=== PATIENT | female | born 1975 | race African-American/Black ===

== ENCOUNTER 2017-01-08 12:57 | Inpatient (IN) | payer OTHER ==
[2017-01-08 14:45] VITALS: BMI 37.9
[2017-01-08] MEDS ORDERED: diphenhydrAMINE HCL 50 MG CAPSULE PO PRN (14:59)
[2017-01-08] MEDS ORDERED: MAGNESIUM CITRATE 300 ML BOTTLE PO PRN (14:59)
[2017-01-08] MEDS ORDERED: guaiFENesin/D-METHORPHAN HB 10 ML UNIT-DOSE CUPS PO PRN (14:59)
[2017-01-08] MEDS ORDERED: P-EPHED 60MG/TRIPROLIDI 2.5MG TABLET PO PRN (14:59)
[2017-01-08] MEDS ORDERED: NICOTINE POLACRILEX 4 MG GUM BC PRN (14:59)
[2017-01-08] MEDS ORDERED: LOPERAMIDE HCL 2 MG CAPSULE PO PRN (14:59)
[2017-01-08] MEDS ORDERED: MAG HYDROX/AL HYDROX/SIMETH 30 ML UNIT-DOSE CUP PO PRN (14:59)
[2017-01-08] MEDS ORDERED: MENTHOL/PHENOL 1 EACH UD MM PRN (14:59)
[2017-01-08] MEDS ORDERED: IBUPROFEN 400 MG TABLET (FP) PO PRN (14:59)
[2017-01-08] MEDS ORDERED: hydrOXYzine PAMOATE 50 MG CAPSULE (FP) PO PRN (14:59)
[2017-01-08] MEDS ORDERED: MAGNESIUM HYDROX 2400MG/30ML ORAL SUSPENSION 30 ML CUP PO PRN (14:59)
[2017-01-08] MEDS ORDERED: ACETAMINOPHEN 325 MG TABLET (FP) PO PRN (14:59)
--- NOTE | 2017-01-08 15:04 | HP ---
Admission [facility] Chief Complaint: requesting inpatient rehab for cocaine use Allergies/Adverse Reactions: Allergies Allergy/AdvReac Type Severity Reaction Status Date / Time No Known Allergies Allergy Verified 01/08/17 14:57 History of Present Illness: 41 yo f with h/o chronic crack cocaine dependence, nicotine dependence, h/o asthma, HTN, bp normal but now not taking medications, psychiatric illness, no suicidal ideation at present, suicide attempt in past admitted for inpatient rehab. no h/o seizures, DTs, no other illicit drug use reported no alcohol use. Exam Limitations: No Limitations - Ebola screening Have you traveled outside of the country in the last 21 days: No Have you had contact with anyone from an Ebola affected area: No Have you been sick,other than usual withdrawal symptoms: No Do you have a fever: No - Review of Systems Constitutional: No Symptoms Reported EENT: reports: No Symptoms Reported Respiratory: reports: Cough (at night from asthma, relieved by pump), Shortness of Breath, Wheezing (from astma, relieved by inhaler at night) Cardiac: reports: No Symptoms Reported Musculoskeletal: reports: No Symptoms Reported, Muscle Pain (occasionally in legs, no swelling no h/o trauma) Integumentary: reports: No Symptoms Reported Neuro: reports: No Symptoms reported Endocrine: reports: No Symptoms Reported Hematology: reports: No Symptoms Reported Psychiatric: reports: No Sypmtoms Reported, Depressed Other Systems: Reviewed and Negative Patient History - Patient Medical History Hx Anemia: Yes (heavy periods on iron pills) Hx Asthma: Yes (uses) Hx Chronic Obstructive Pulmonary Disease (COPD): No Hx Cancer: No Hx Cardiac Disorders: No Hx Congestive Heart Failure: No Hx Hypertension: Yes (not takin gmedication as prescribed bp stable has lost 20lbs) Hx Hypercholesterolemia: No Hx Pacemaker: No HX Cerebrovascular Accident: No Hx Seizures: No Hx Dementia: No Hx Diabetes: No Hx Gastrointestinal Disorders: No Hx Liver Disease: No Hx Genitourinary Disorders: No Hx Sexually Transmitted Disorders: No Hx Renal Disease (ESRD): No Hx Thyroid Disease: No Hx Human Immunodeficiency Virus (HIV): No Hx Hepatitis C: No Hx Depression: Yes Hx Suicide Attempt: Yes (no suicidal ideation age 28) Hx Bipolar Disorder: Yes Hx Schizophrenia: Yes - Patient Surgical History Past Surgical History: Yes Other Surgical History: cervical dysplasia Anesthesia Reaction: No - PPD History Previous Implant?: Yes Documented Results: Negative w/o proof Implanted On Prior R Admission?: Yes PPD to be Administered?: Yes - Reproductive History Patient is a Female of Child Bearing Age (11 -55 yrs old): No Patient : No - Smoking Cessation Smoking history: Current every day smoker Have you smoked in the past 12 months: Yes Aproximately how many cigarettes per day: 20 Hx Chewing Tobacco Use: No Initiated information on smoking cessation: Yes 'Breaking Loose' booklet given: 01/08/17 - Substance & Tx. History Hx Alcohol Use: No Hx Substance Use: Yes Substance Use Type: Cocaine Hx Substance Use Treatment: Yes ([facility] in past) - Substances Abused Crack Route: Smoking Frequency: Daily Amount used: $50-100 Age of first use: 30 Date of Last Use: 01/07/17 Family Disease History - Family Disease History Family Disease History: Heart Disease: Father, Mother Other Family History: aunts ca Admission Physical Exam BHS - Vital Signs Vital Signs: Vital Signs - 24 hr 01/08/17 14:42 Temperature 97.4 F L Pulse Rate 90 Respiratory 20 Rate Blood Pressure 122/85 - Physical General Appearance: Yes: No Apparent Distress, Nourished, Appropriately Dressed , Obese HEENTM: Yes: Within Normal Limits, EOMI, Hearing grossly Normal, Normal ENT Inspection, Normocephalic, Normal Voice, HANSA, Pharynx Normal Respiratory: Yes: Within Normal Limits, Chest Non-Tender, Lungs Clear, Normal Breath Sounds, No Respiratory Distress, No Accessory Muscle Use Neck: Yes: Within Normal Limits, No masses,lesions,Nodules, Supple, Trachea in good position Breast: Yes: Breast Exam Deferred Cardiology: Yes: Within Normal Limits, Regular Rhythm, Regular Rate, S1, S2 Abdominal: Yes: Within Normal Limits, Normal Bowel Sounds, Non Tender, Soft, Protuberent, Distended Genitourinary: Yes: Within Normal Limits Back: Yes: Within Normal Limits, Normal Inspection Musculoskeletal: Yes: Within Normal Limits, full range of Motion, Gait Steady, Pelvis Stable Extremities: Yes: Within Normal Limits, Normal Capillary Refill, Normal Inspection, Normal Range of Motion, Non-Tender, Tremors (felt not visible) Neurological: Yes: Within Normal Limits, corpsman II-XII NML intact, Fully Oriented, Alert, Motor Strength 5/5, Normal Response, Depressed Affect Integumentary: Yes: Within Normal Limits, Normal Color, Dry, Warm Lymphatic: Yes: Within Normal Limits - Addiitonal Findings: no signs of withdrawal sx, obses with slight tremor noted. - Diagnostic (1) Cocaine dependence, uncomplicated Current Visit: Yes Status: Acute (2) Obesity Current Visit: Yes Status: Acute (3) Schizoaffective disorder Current Visit: Yes Status: Acute (4) Asthma Current Visit: Yes Status: Acute Cleared for Admission [facility] - Detox or Rehab Claeared for Rehab Admission: Yes [facility] Breath Alcohol Content Breath Alcohol Content: 0 Urine Pregancy Test - Result Urine Test Results: Negative- NO Line Present Urine Drug Screen - Results Drug Screen Negative: No Urine Drug Screen Results: JESSIE-Cocaine
[2017-01-08 17:04] LABS: MCH 22.4 pg (25.7-33.7); MCHC 32.7 g/dl (32.0-36.0); MEAN CELL VOLUME 68.6 fl (80-96); PLATELET COUNT 365 K/MM3 (134-434); RDW 18.3 % (11.6-15.6); WHITE BLOOD COUNT 8.4 K/mm3 (4.0-10.0)
[2017-01-08 17:23] LABS: ALBUMIN 3.4 g/dl (3.4-5.0); ALK PHOS 84 U/L (45-117); ANION GAP 8 (8-16); BILIRUBIN,TOTAL 0.3 mg/dL (0.2-1.0); CALCIUM 8.8 mg/dL (8.5-10.1); CO2 27 mmol/L (21-32); GLUCOSE,RANDOM 131 mg/dL (74-106); SGOT/AST 15 U/L (15-37); SGPT/ALT 24 U/L (12-78); TOT PROT 7.1 g/dl (6.4-8.2)
[2017-01-08] MEDS ORDERED: TUBERCULIN PPD 5 TU/0.1ML VIAL ID ONE (18:10)
[2017-01-08] MEDS: THIAMINE HCL 100 MG TABLET (FP) PO SCH (21:25)
[2017-01-08] MEDS: traZODone HCL 100 MG TABLET (FP) PO SCH (21:25)
[2017-01-08] MEDS: DIVALPROEX SODIUM 500 MG TABLET E.C. PO SCH (21:25)
[2017-01-08] MEDS: NICOTINE 21 MG/24 HOURS TOPICAL PATCH TD SCH (21:26)
[2017-01-09 01:31] LABS: URINE APPEARANCE SLCLOUDY; URINE BILIRUBIN NEGATIVE (NEGATIVE); URINE BLOOD 3+ (NEGATIVE); URINE COLOR AMBER; URINE GLUCOSE (UA) NEGATIVE (NEGATIVE); URINE KETONE NEGATIVE (NEGATIVE); URINE LEUK ESTERASE TRACE (NEGATIVE); URINE NITRITE NEGATIVE (NEGATIVE); URINE PROTEIN 1+ (NEGATIVE)
[2017-01-09 01:36] LABS: URINE MUCUS MANY; URINE RBC 32 /hpf (0-3); URINE WBC 16 /hpf (3-5)
[2017-01-09] MEDS ORDERED: PT OWN MED DRAWER 7, Y5N ONE (06:44)
[2017-01-09] MEDS: ALBUTEROL SO4 6.7 GM HFA INHALER IH PRN (06:44)
[2017-01-09 09:49] LABS: HIV 1 & 2 AB NEGATIVE; HIV 1 AGp24 NEGATIVE
[2017-01-09] MEDS ORDERED: ARIPiprazole 10 MG TABLET PO SCH (10:00)
[2017-01-09] MEDS: DIVALPROEX SODIUM 500 MG TABLET E.C. PO SCH ×2 (10:33→21:20)
[2017-01-09] MEDS: NICOTINE 21 MG/24 HOURS TOPICAL PATCH TD SCH (10:33)
[2017-01-09] MEDS: PRENATAL VITAMINS W/ FOLIC ACID TABLET (FP) PO SCH (10:33)
--- NOTE | 2017-01-09 13:22 | EKG ---
Test Reason : Blood Pressure : / mmHG Vent. Rate : 083 BPM Atrial Rate : 083 BPM P-R Int : 132 ms QRS Dur : 098 ms QT Int : 392 ms P-R-T Axes : 067 052 038 degrees QTc Int : 460 ms NORMAL SINUS RHYTHM WITH SINUS ARRHYTHMIA NORMAL ECG NO PREVIOUS ECGS AVAILABLE Confirmed by SREE MAYORGA, JULIANA ([id number]) on 01/09/2017 1:21:47 PM Referred By: Jackie Painting Confirmed By:JULIANA BALBUENA MD
--- NOTE | 2017-01-09 15:22 | PN ---
[facility] Progress Note Note: as per nurse patient requested to take abilify at hs, will change from am to hs
[2017-01-09] MEDS: THIAMINE HCL 100 MG TABLET (FP) PO SCH (21:20)
[2017-01-09] MEDS: ARIPiprazole 10 MG TABLET PO SCH (21:21)
[2017-01-09] MEDS: traZODone HCL 100 MG TABLET (FP) PO SCH (21:21)
[2017-01-10] MEDS: PRENATAL VITAMINS W/ FOLIC ACID TABLET (FP) PO SCH (10:08)
[2017-01-10] MEDS: DIVALPROEX SODIUM 500 MG TABLET E.C. PO SCH ×2 (10:08→21:39)
[2017-01-10] MEDS: ALBUTEROL SO4 6.7 GM HFA INHALER IH PRN ×2 (10:10→21:39)
[2017-01-10] MEDS: NICOTINE 21 MG/24 HOURS TOPICAL PATCH TD SCH (10:12)
--- NOTE | 2017-01-10 10:26 | HP ---
Psychiatrist Admission - Data Date of interview: 01/10/17 Admission source: [facility] Identifying data: This is the first admission to [address] [place] [address] for this 41 years old female AA seaparated ,resides with roommate ,supported by PA. Medical History: Significant for BA,Obesity. Psychiatric History: Patient is poor historian,relactant to give information, details.Patient was dx with Bipolar disorder about 10 years ago.Reports 3-5 psychiatric hospitalizations.She sees psychiatrist at [facility].Current medications:Depakote 500 mg po bid,Abilify 10 mg po hs and Trazodone 100 mg po hs. Physical/Sexual Abuse/Trauma History: not willing to discuss at this time. Vital Signs: Vital Signs - 24 hr 01/10/17 01/10/17 01/10/17 00:30 03:30 06:41 Temperature 98.2 F Pulse Rate 80 Respiratory 18 18 18 Rate Blood Pressure 125/81 Allergies/Adverse Reactions: Allergies Allergy/AdvReac Type Severity Reaction Status Date / Time No Known Allergies Allergy Verified 01/08/17 14:57 Date of last physical exam: 01/08/17 Concur with the findings of this exam: Yes - Substance Abuse/Tx History Hx Alcohol Use: No Hx Substance Use: Yes (reports using crack/cocaine since 30 years old,spending $ 50-100 daily) Substance Use Type: Cocaine Hx Substance Use Treatment: Yes - Admission Criteria Previous failed treatment: Yes Poor recovery environment: Yes Comorbidities: Yes Lacks judgement: Yes Mental Status Exam - Mental Status Exam Alert and Oriented to: Time, Place, Person Cognitive Function: Grossly Intact Patient Appearance: Unkempt Mood: Irritable Affect: Labile Patient Behavior: Cooperative Speech Pattern: Clear Voice Loudness: Normal Thought Process: Goal Oriented Thought Disorder: Not Present Hallucinations: Denies Suicidal Ideation: Denies Homicidal Ideation: Denies Insight/Judgement: Fair Sleep: Fair Appetite: Good Muscle strength/Tone: Normal Gait/Station: Normal Psychiatric Findings - Problem List ([place] 1, 2,3) (1) Asthma Current Visit: Yes Status: Chronic (2) Cocaine dependence, uncomplicated Current Visit: Yes Status: Chronic (3) Obesity Current Visit: Yes Status: Chronic (4) Schizoaffective disorder Current Visit: Yes Status: Chronic - Initial Treatment Plan Initial Treatment Plan: Continue Abilify 10 mg po hs,Depakote 500 mg po bid and TRazodone 100 mg po hs.Will monitor progress.
[2017-01-10] MEDS: ARIPiprazole 10 MG TABLET PO SCH (21:39)
[2017-01-10] MEDS: THIAMINE HCL 100 MG TABLET (FP) PO SCH (21:39)
[2017-01-10] MEDS: traZODone HCL 100 MG TABLET (FP) PO SCH (22:06)
[2017-01-11 07:01] VITALS: BP 138/85; PULSE 87; TEMP 98.1
[2017-01-11] MEDS ORDERED: PT OWN MED DRAWER 7, Y5N ONE (09:14)
--- NOTE | 2017-01-11 10:55 | PN ---
S Progress Note Note: Sinter Feeder was informed that patient left AMA today 01/11/17.See staff notes for details.
== END 2017-01-11 09:38 | disposition left against medical advice (07) | DRG 770 ==
LOC: YASAS 12:57 → Y3E 16:26
PROVIDERS: ADMIT Psychiatry & Neurology Psychiatry; ATTEND Psychiatry & Neurology Psychiatry
DX: F14.20 Cocaine dependence, uncomplicated (principal); F17.210 Nicotine dependence, cigarettes, uncomplicated; F25.9 Schizoaffective disorder, unspecified; F31.9 Bipolar disorder, unspecified; I10 Essential (primary) hypertension; J45.909 Unspecified asthma, uncomplicated; E66.9 Obesity, unspecified; Z91.5 Personal history of self-harm; Z68.37 Body mass index [BMI] 37.0-37.9, adult
CPT/HCPCS: 36415; 80053; 81003; 81015; 85027; 86593; 87389; 93005; 93010